=== PATIENT | female | born 1985 | race Caucasian/White ===

== ENCOUNTER 2021-01-04 03:18 | Emergency (ER) | payer OTHER ==
[~2021-01-04] VITALS: Ht 154.9 cm; Wt 54.4 kg
[2021-01-04] MEDS ORDERED: CARBAMAZEPINE200 M2 PO (03:56)
[2021-01-04 05:10] VITALS: BP 105/68
== END 2021-01-04 05:15 | disposition home or self-care (01) ==
LOC: ER 03:18
DX: R56.9 Unspecified convulsions (principal); Z91.14 Patient's other noncompliance with medication regimen